=== PATIENT | male | born 1980 | race Caucasian/White ===

== ENCOUNTER → 2017-11-02 | Day surgery (SDC) | payer BC, OTHER ==
[~2017-11-02] MED LIST: FENTANYL CITRATE/PF 100MCG/2 ML INJ ONE; HYOSCYAMINE SULFATE 0.5 MG/ML AMP ONE; LIDOCAINE HCL 2% LOCAL INJ 5 ML SDV VIAL INJ ONE; MIDAZOLAM HCL 2 MG/2 ML VIAL ONE; PROPOFOL IV EMULSION 10 MG/ML 50 ML VIAL ONE
--- NOTE | 2017-11-02 14:35 | Operative Report ---
DATE OF PROCEDURE: November 02, 2017 REFERRING PHYSICIAN: Dr. Clara Mccollum. PROCEDURES PERFORMED 1. Esophagogastroduodenoscopy with biopsies. 2. Colonoscopy with polypectomy. INDICATIONS FOR EGD: Acid reflux. INDICATIONS FOR COLONOSCOPY: Postprandial fecal urgency. MEDICATION: Patient was done under MAC. Please see anesthesiologist's note. PROCEDURE: With the patient in the left lateral decubitus position, the flexible fiberoptic Olympus gastroscope was introduced into the esophagus under direct visualization without any difficulty. There was some patchy erythema noted in the distal esophagus. The scope was then advanced with ease into the stomach. Mucosa overlying the antrum and the body revealed some patchy erythema and mild to moderate edema, and biopsies were obtained and sent to stain for H. pylori. Pylorus appeared to be of normal contour and shape. It was intubated with ease, and the scope was advanced all the way to the 2nd portion of the duodenum. There were some scalloped folds noted in the proximal duodenum. Biopsies were obtained to rule out sprue. A nodule was noted in the distal duodenal bulb, and that was biopsied. The scope was then withdrawn back into the stomach and retroflexed. The mucosa overlying the fundus and cardia appeared to be within normal limits. The scope was then straightened out. The stomach was decompressed. Scope was subsequently withdrawn. Patient tolerated the procedure well. IMPRESSION 1. Distal esophagitis. 2. Gastritis, biopsied. Biopsies sent to stain for H. pylori. 3. Nodule in distal bulb, biopsied. 4. Rule out sprue. PLAN: Follow up histology. Initiate Protonix 40 mg 1 p.o. q.a.m. a.c. The patient was then turned around. After adequate lubrication of the anal canal, a flexible fiberoptic Olympus colonoscope was inserted into the rectum with ease and advanced all the way to the cecum. Two polyps were snared from the cecum. The scope was then withdrawn slowly. One polyp was snared from the ascending colon. The transverse appeared to be within normal limits. One polyp was snared from the descending. Diverticular disease was noted in the distal descending and the sigmoid colon. Two polyps were hot biopsied. One polyp was snared from the sigmoid colon. The rectum appeared to be within normal limits. The scope was then retroflexed into the distal rectum, and small internal hemorrhoids were noted, none of which was actively bleeding. The scope was then straightened out. It was subsequently withdrawn. Patient tolerated the procedure well. IMPRESSION 1. Cecal polyps times 2, snared. 2. Ascending colon polyp, snared times 1. 3. Descending colon polyp, snared times 1. 4. Diverticulosis. 5. Sigmoid colon polyps, 1 snared and 2 hot biopsied. 6. Internal hemorrhoids, none actively bleeding. PLAN: Follow up histology. Initiate high-fiber, low-fat diet. Initiate high-fiber supplement. Start Bentyl 10 mg 1 p.o. t.i.d. and VSL #3 DS 1 p.o. daily. Timing of followup colonoscopy pending pathology report. Job#: [id number] cc:CLARA MCCOLLUM MD
== END | disposition home or self-care (01) ==
LOC: OR 08:52
PROVIDERS: ATTEND Internal Medicine Gastroenterology
DX: K29.50 Unspecified chronic gastritis without bleeding (principal); D12.0 Benign neoplasm of cecum; D12.2 Benign neoplasm of ascending colon; K21.9 Gastro-esophageal reflux disease without esophagitis; K20.9 Esophagitis, unspecified; K31.89 Other diseases of stomach and duodenum; K57.30 Diverticulosis of large intestine without perforation or abscess without bleeding; Q43.8 Other specified congenital malformations of intestine; D72.820 Lymphocytosis (symptomatic); K64.8 Other hemorrhoids; R15.2 Fecal urgency; H53.50 Unspecified color vision deficiencies; R03.0 Elevated blood-pressure reading, without diagnosis of hypertension; Z68.28 Body mass index [BMI] 28.0-28.9, adult
CPT/HCPCS: 43239; 45384; 45385; J1980; J2001; J2250